=== PATIENT | male | born 1970 | race Caucasian/White ===

== ENCOUNTER 2019-06-17 08:17 | Emergency (ER) | payer OTHER ==
[~2019-06-17] VITALS: Ht 170.2 cm; Wt 76.3 kg
[2019-06-17 08:21] VITALS: BP 150/83
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
[2019-06-17] MEDS ORDERED: KETOROLAC 30 MG/1 ML ONE (08:55)
--- NOTE | 2019-06-17 08:59 | NUR ---
PT MEDICATED PER EMAR. PT TOLERATED WELL.
[2019-06-17] MEDS ORDERED: KETOROLAC 30 MG/1 ML IM ONE (09:00)
== END 2019-06-17 09:18 | disposition home or self-care (01) ==
LOC: ED 09:00
DX: G89.29 Other chronic pain (principal); M25.551 Pain in right hip; F17.200 Nicotine dependence, unspecified, uncomplicated; Z59.0 Homelessness
CPT/HCPCS: 96372; 99283; J1885

== ENCOUNTER 2019-06-24 00:01 | Emergency (ER) | payer SELFPAY ==
[~2019-06-24] VITALS: Ht 170.2 cm; Wt 74.8 kg
[2019-06-24 00:03] VITALS: BP 183/85
--- NOTE | 2019-06-24 00:24 | NUR ---
PT REPORTS "IM HERE FOR A TORADOL SHOT" "I DONT NEED A NURSE OR DOCTOR JUST THE SHOT". PT DENIES ANY MEDICAL C/O REPORTS CHRONIC PAIN FOR MULT YEARS. ERP IN OROM TO FUENTES PT.
[2019-06-24] MEDS ORDERED: KETOROLAC 60 MG/2 ML ONE (00:47)
[2019-06-24] MEDS ORDERED: KETOROLAC 60 MG/2 ML IM ONE (01:00)
== END 2019-06-24 01:05 | disposition home or self-care (01) ==
LOC: ED 00:34
DX: M25.551 Pain in right hip (principal); G89.29 Other chronic pain; R10.2 Pelvic and perineal pain
CPT/HCPCS: 96372; 99283; J1885

== ENCOUNTER 2019-06-25 19:09 | Emergency (ER) | payer SELFPAY ==
[~2019-06-25] VITALS: Ht 171.4 cm; Wt 74.1 kg
[2019-06-25 19:11] VITALS: BP 161/89
[2019-06-25] MEDS ORDERED: KETOROLAC 30 MG/1 ML IM ONE (19:30)
[2019-06-25] MEDS ORDERED: KETOROLAC 60 MG/2 ML ONE (19:32)
--- NOTE | 2019-06-25 19:48 | NUR ---
Patient states he is high on some kind of drugs. He is having hip pain and wants a shot for the pain. Medication administered per jul. Discharge instructions given. Patient ambulatory with a steady gait. Belongings with patient.
== END 2019-06-25 19:50 | disposition home or self-care (01) ==
LOC: ED 19:45
DX: G89.29 Other chronic pain (principal); M25.551 Pain in right hip; F19.10 Other psychoactive substance abuse, uncomplicated; F17.200 Nicotine dependence, unspecified, uncomplicated
CPT/HCPCS: 96372; 99283; J1885

== ENCOUNTER 2019-06-27 15:42 | Emergency (ER) | payer SELFPAY ==
[~2019-06-27] VITALS: Ht 170.2 cm; Wt 75.0 kg
[2019-06-27 15:52] VITALS: BP 131/82
--- NOTE | 2019-06-27 15:52 | NUR ---
BIB [facility]-Pt placed on hold by [facility] team citing 'pt wandering in street, A&O x1'. Per EMS pt used meth earlier today but pt denies this. Pt curently A&O x4, restless in bed but mostly cooperative with assessment by staff. Pt placed in gown, all pt belongings placed in one bag, labeled and secured in locker. Pt's room secured, sitter within eyesight of pt.
[2019-06-27] MEDS ORDERED: LORazepam 2 MG/ML, 1ML ONE (15:58)
[2019-06-27 16:13] LABS: BASOPHILS # (AUTO) 0.04 x10^3/uL (0-0.1); BASOPHILS % (AUTO) 1 % (0-1); EOSINOPHILS # (AUTO) 0.08 x10^3/uL (0-0.4); EOSINOPHILS % (AUTO) 1 % (1-7); LYMPHOCYTES # (AUTO) 2.01 x10^3/uL (1-3.4); LYMPHOCYTES % (AUTO) 27 % (22-44); MD NO; MEAN CORPUSCULAR HEMOGLOBIN 29.5 pg (27.5-34.5); MEAN CORPUSCULAR VOLUME 89.3 fL (81-97); MEAN PLATELET VOLUME 6.9 fL (7.4-10.4); MONOCYTES # (AUTO) 0.79 x10^3/uL (0.2-0.8); MONOCYTES % (AUTO) 11 % (2-9); NEUTROPHILS # (AUTO) 4.39 x10^3/uL (1.8-6.8); NEUTROPHILS % (AUTO) 60 % (42-75); PLATELET COUNT 315 x10^3/uL (130-400); RED BLOOD COUNT 3.93 x10^6/uL (4.38-5.82); RED CELL DISTRIBUTION WIDTH 15.1 % (9.4-14.8)
[2019-06-27 16:20] LABS: ALBUMIN 3.1 g/dL (3.4-5.0); ANION GAP 5 mmol/L (5-15); CALCIUM 8.6 mg/dL (8.5-10.1); CHLORIDE 110 mmol/L (98-107); SALICYLATE LEVEL 2.6 mg/dL (2.8-20.0)
--- NOTE | 2019-06-27 16:21 | NUR ---
Pt medicated with Ativan per JUL. Pt states "Fuck you bitch" when this RN administered injection. This RN advised pt that foul language and disrespect to hospital staff will not be tolerated. Pt verbalized understanding of this. Room remains secured, sitter within eyesight of pt, all safety measures observed.
[2019-06-27 16:23] LABS: ALANINE AMINOTRANSFERASE 70 U/L (12-78); ALKALINE PHOSPHATASE 120 U/L (45-117); BILIRUBIN,TOTAL 0.2 mg/dL (0.2-1.0)
[2019-06-27] MEDS ORDERED: LORazepam 2 MG/ML, 1ML IM ONE (17:00)
--- NOTE | 2019-06-27 17:20 | NUR ---
Pt ambulatory to bathroom and back to bed without difficulty. Urine sample sent to lab. Pt resting in bed watching TV, NADN.
[2019-06-27 17:28] LABS: AMPHETAMINE SCREEN, URINE Positive (Negative); BARBITURATE SCREEN, URINE Negative (Negative); BENZODIAZEPINE SCREEN, URINE Negative (Negative); CANNABINOID SCREEN, URINE Positive (Negative); COCAINE SCREEN, URINE Negative (Negative); METHADONE SCREEN, URINE Negative (Negative); OPIATE SCREEN, URINE Negative (Negative)
--- NOTE | 2019-06-27 17:58 | NUR ---
Dinner tray ordered for pt. Pt resting in bed watching TV,
--- NOTE | 2019-06-27 18:26 | NUR ---
Pt provided with dinner tray with SI precautions observed.
--- NOTE | 2019-06-27 19:09 | NUR ---
Pt eating dinner tray and watching TV, EDILBERTO. Report to Sandy HUFFMAN.
--- NOTE | 2019-06-27 20:23 | NUR ---
pt ate 100% of meal, resting on gurney, eyes closed, respirations even and unlabored. sitter at doorway for frequent checks.
--- NOTE | 2019-06-27 21:34 | NUR ---
dr elliott in to reassess pt. pt sticking his tongue out at dr and not answering questions. pt then rolled on his side, spead his buttocks and flatulated audibly. dr elliott informed pt he will be discharged. after he left the room, pt was gesturing with his middle fingers to the sitters at the doorway. pt was given back his belongings and refused to get dressed and refusing to leave. security called and 3 officers to pt room. pt continues to lay naked on his side, spread his buttock and audibly flatulate while laughing. pt refusing to get dressed and leave. pt then became increasingly aggitated, standing close to officers and posturing with his chest out. pt continues to refuse to leave. pt lunged at security and pt was restrained in handcuffs for staff saftey. [employer] called and pt under arrest for trespassing.
== END 2019-06-27 21:55 | disposition home or self-care (01) ==
LOC: EDBD → MERGE 16:25 → ED 16:25
DX: F15.129 Other stimulant abuse with intoxication, unspecified (principal); R45.1 Restlessness and agitation
CPT/HCPCS: 36415; 80053; 80307; 85025; 93005; 96372; 99284; J2060

== ENCOUNTER 2019-08-03 16:10 | Emergency (ER) | payer OTHER ==
[~2019-08-03] VITALS: Ht 170.2 cm; Wt 75.5 kg
--- NOTE | 2019-08-03 16:26 | NUR ---
NO ANSWER X1 LOBBY
[2019-08-03 16:35] VITALS: BP 125/90
--- NOTE | 2019-08-03 16:49 | NUR ---
NO ANSWER X1 LOBBY
--- NOTE | 2019-08-03 17:49 | NUR ---
Called and no response
== END 2019-08-03 18:18 | disposition left against medical advice (07) ==
LOC: ED 18:10
DX: G89.29 Other chronic pain (principal); M25.551 Pain in right hip
CPT/HCPCS: 99283

== ENCOUNTER 2019-08-08 18:30 | Emergency (ER) | payer SELFPAY ==
[~2019-08-08] VITALS: Ht 170.2 cm; Wt 75.0 kg
[2019-08-08 18:49] VITALS: BP 137/72
[2019-08-08] MEDS ORDERED: KETOROLAC 30 MG/1 ML ONE (19:12)
[2019-08-08] MEDS ORDERED: KETOROLAC 30 MG/1 ML IM ONE (19:30)
== END 2019-08-08 19:42 | disposition home or self-care (01) ==
LOC: ED 19:00
DX: M25.551 Pain in right hip (principal); G89.29 Other chronic pain
CPT/HCPCS: 96372; 99283; J1885

== ENCOUNTER 2019-08-10 21:56 | Emergency (ER) | payer SELFPAY ==
[~2019-08-10] VITALS: Ht 170.2 cm; Wt 77.0 kg
[2019-08-10 21:59] VITALS: BP 135/85
[2019-08-10] MEDS ORDERED: IBUPROFEN 200 MG TABLET ONE (23:40)
--- NOTE | 2019-08-10 23:45 | NUR ---
TASK RN: DC EDUCATION PROVIDED, PT DEMONSTRATES UNDERSTANDING. PT PROVIDED [employer]AXI VOUCHER TO [facility] FOR SAFE TRANSPORT. PT DRESSED APPROPRIATELY FOR WEATHER
[2019-08-11] MEDS ORDERED: IBUPROFEN 200 MG TABLET PO ONE
== END 2019-08-10 23:48 | disposition home or self-care (01) ==
LOC: ED 23:40
DX: G89.11 Acute pain due to trauma (principal); M25.551 Pain in right hip; W00.0XXA Fall on same level due to ice and snow, initial encounter; Y93.89 Activity, other specified; Y92.488 Other paved roadways as the place of occurrence of the external cause; Y99.8 Other external cause status
CPT/HCPCS: 99283

== ENCOUNTER 2019-08-12 13:34 | Emergency (ER) | payer OTHER ==
[~2019-08-12] VITALS: Ht 170.2 cm; Wt 58.5 kg
--- NOTE | 2019-08-12 13:42 | NUR ---
CALLED FOR PT. PT NOT IN LOBBY.
[2019-08-12 13:46] VITALS: BP 141/81
--- NOTE | 2019-08-12 15:00 | NUR ---
COMMERCIAL COORDINATOR: PT SIGNED AMA FORM.
--- NOTE | 2019-08-12 15:00 | NUR ---
NA X 2:
[2019-08-12 15:19] LABS: BASOPHILS # (AUTO) 0.04 x10^3/uL (0-0.1); BASOPHILS % (AUTO) 1 % (0-1); EOSINOPHILS # (AUTO) 0.17 x10^3/uL (0-0.4); EOSINOPHILS % (AUTO) 2 % (1-7); LYMPHOCYTES # (AUTO) 2.36 x10^3/uL (1-3.4); LYMPHOCYTES % (AUTO) 29 % (22-44); MD NO; MEAN CORPUSCULAR HEMOGLOBIN 29.6 pg (27.5-34.5); MEAN CORPUSCULAR HGB CONC 33.1 g/dL (33.2-36.2); MEAN CORPUSCULAR VOLUME 89.5 fL (81-97); MEAN PLATELET VOLUME 7.2 fL (7.4-10.4); MONOCYTES # (AUTO) 0.78 x10^3/uL (0.2-0.8); MONOCYTES % (AUTO) 10 % (2-9); NEUTROPHILS # (AUTO) 4.72 x10^3/uL (1.8-6.8); NEUTROPHILS % (AUTO) 59 % (42-75); PLATELET COUNT 339 x10^3/uL (130-400); RED BLOOD COUNT 4.43 x10^6/uL (4.38-5.82); RED CELL DISTRIBUTION WIDTH 16.5 % (9.4-14.8)
[2019-08-12 15:28] LABS: ALBUMIN 3.3 g/dL (3.4-5.0); ANION GAP 2 mmol/L (5-15); CALCIUM 8.7 mg/dL (8.5-10.1); CHLORIDE 109 mmol/L (98-107); CREATININE 0.71 mg/dL (0.7-1.3); SALICYLATE LEVEL 3.8 mg/dL (2.8-20.0)
--- NOTE | 2019-08-12 16:07 | NUR ---
pt wants refill rx
[2019-08-12] MEDS ORDERED: ACETAMINOPHEN 325 MG TABLET PO ONE (16:30)
[2019-08-12] MEDS ORDERED: KETOROLAC 30 MG/1 ML IM ONE (16:30)
[2019-08-12] MEDS ORDERED: KETOROLAC 30 MG/1 ML ONE (16:51)
[2019-08-12] MEDS ORDERED: ACETAMINOPHEN 325 MG TABLET ONE (16:51)
== END 2019-08-12 16:58 | disposition home or self-care (01) ==
LOC: ED 15:50
DX: S76.011A Strain of muscle, fascia and tendon of right hip, initial encounter (principal); G89.29 Other chronic pain; F17.200 Nicotine dependence, unspecified, uncomplicated; X58.XXXA Exposure to other specified factors, initial encounter; Y93.89 Activity, other specified; Y92.89 Other specified places as the place of occurrence of the external cause; Y99.8 Other external cause status
CPT/HCPCS: 36415; 80048; 80307; 82040; 85025; 96372; 99283; J1885

== ENCOUNTER 2019-08-14 07:28 | Emergency (ER) | payer SELFPAY ==
[~2019-08-14] VITALS: Ht 170.2 cm; Wt 75.0 kg
[2019-08-14 07:47] VITALS: BP 134/85
--- NOTE | 2019-08-14 07:56 | NUR ---
seen by erp in the triage pt admits to erp that he just wants a place to sleep pt was advised that was not a tx we provide pt left from triage
== END 2019-08-14 07:59 | disposition left against medical advice (07) ==
LOC: ED 07:53
DX: G89.29 Other chronic pain (principal); M25.551 Pain in right hip; K02.9 Dental caries, unspecified; K05.10 Chronic gingivitis, plaque induced
CPT/HCPCS: 99281

== ENCOUNTER 2019-08-16 15:09 | Emergency (ER) | payer OTHER ==
[~2019-08-16] VITALS: Ht 172.7 cm; Wt 75.0 kg
[2019-08-16 15:24] VITALS: BP 132/80
--- NOTE | 2019-08-16 15:35 | NUR ---
NO ANSWER FROM [facility]P LOBBY. PT NOT FOUND IN AREA OUTSIDE TENT
--- NOTE | 2019-08-16 15:42 | NUR ---
PT NOT IN LOBBY WHEN CALLED
--- NOTE | 2019-08-16 16:15 | NUR ---
PT TO AT THIS TIME. PT STATES HE IS HERE BECAUSE HE HAS CHRONIC HIP PAIN AND HE IS "TOO LAZY TO GET A PRIMARY CARE PHYSICIAN". PT STATES HE ALSO HAS BED BUGS. PT EXAMINED, MULTIPLE BITE FERNANDEZ FOUND, NO VISIBLE BUGS NOTED. PT TAKEN TO DECON. PT ABLE TO WALK STEADILY. PT DOES NOT APPEAR TO BE IN DISCOMFORT. ERMD UPDATED.
[2019-08-16] MEDS ORDERED: IBUPROFEN 600 MG TABLET ONE (16:56)
[2019-08-16] MEDS ORDERED: IBUPROFEN 600 MG TABLET PO ONE (17:00)
== END 2019-08-16 17:27 | disposition home or self-care (01) ==
LOC: ED 15:52
DX: G89.29 Other chronic pain (principal); M25.551 Pain in right hip; F17.290 Nicotine dependence, other tobacco product, uncomplicated
CPT/HCPCS: 99282

== ENCOUNTER 2019-08-17 23:12 | Emergency (ER) | payer SELFPAY ==
[~2019-08-17] VITALS: Ht 170.2 cm; Wt 75.0 kg
[2019-08-17 23:30] VITALS: BP 146/80
[2019-08-17] MEDS ORDERED: KETOROLAC 30 MG/1 ML ONE (23:40)
--- NOTE | 2019-08-17 23:46 | NUR ---
given med via im per erp order pt understood dc instruction pt up ambulated to be out from alcove
[2019-08-18] MEDS ORDERED: KETOROLAC 30 MG/1 ML IM ONE
== END 2019-08-17 23:49 | disposition home or self-care (01) ==
LOC: ED 23:33
DX: G89.29 Other chronic pain (principal); M54.9 Dorsalgia, unspecified
CPT/HCPCS: 96372; 99283; J1885

== ENCOUNTER 2019-08-19 03:17 | Emergency (ER) | payer SELFPAY ==
[~2019-08-19] VITALS: Ht 172.7 cm; Wt 70.0 kg
[2019-08-19 03:24] VITALS: BP 147/82
[2019-08-19] MEDS ORDERED: ACETAMINOPHEN 500 MG TABLET PO ONE (03:30)
--- NOTE | 2019-08-19 03:30 | NUR ---
ELIN COLE TO [facility] TO ASSESS PT. PT TO BE MEDICATED FOR PAIN AND DISCHARGED FROM [facility].
[2019-08-19] MEDS ORDERED: ACETAMINOPHEN 500 MG TABLET ONE (03:38)
== END 2019-08-19 03:46 | disposition home or self-care (01) ==
LOC: ED 03:30
DX: R05 Cough (principal); M79.606 Pain in leg, unspecified; F17.210 Nicotine dependence, cigarettes, uncomplicated
CPT/HCPCS: 99282

== ENCOUNTER 2019-08-19 18:49 | Emergency (ER) | payer SELFPAY ==
[~2019-08-19] VITALS: Ht 153.7 cm; Wt 77.3 kg
[2019-08-19 18:51] VITALS: BP 132/84
--- NOTE | 2019-08-19 19:04 | NUR ---
DR MARQUIS SPOKE WITH PT IN TRIAGE ROOM. PT VERBALIZED NO COMPLAINTS STATED TO TO DR MARQUIS "I JUST CAME FOR A SHOWER"
== END 2019-08-19 19:27 | disposition left against medical advice (07) ==
LOC: ED 19:20
DX: Z00.00 Encounter for general adult medical examination without abnormal findings (principal); F17.200 Nicotine dependence, unspecified, uncomplicated
CPT/HCPCS: 99281

== ENCOUNTER 2019-08-20 04:40 | Emergency (ER) | payer SELFPAY ==
[~2019-08-20] VITALS: Ht 170.2 cm; Wt 77.7 kg
[2019-08-20 04:44] VITALS: BP 139/86
== END 2019-08-20 05:04 | disposition left against medical advice (07) ==
LOC: ED 04:58
DX: K08.89 Other specified disorders of teeth and supporting structures (principal)
CPT/HCPCS: 82962; 99283

== ENCOUNTER 2019-08-20 10:18 | Emergency (ER) | payer OTHER ==
[~2019-08-20] VITALS: Ht 170.2 cm; Wt 77.0 kg
--- NOTE | 2019-08-20 10:46 | NUR ---
PT PRESENTS TO RESP ED TENT WITH C/O "I HAVE BED BUGS" NO BED BUGS SEEN BY THIS RN. PT GIVEN INSTRUCTION THAT HE SHOULD [facility] TO [facility] A [facility]OWER AND THEN ASK THEM FOR SET OF CLEAN CLOTHES TO PUT ON. PT REPEATED TO ME THE INSTRUCTIONS I HAD GIVEN HIM. PT LEFT D/C UPRIGHT STEADY GAIT. NAD NOTED.
== END 2019-08-20 11:03 | disposition home or self-care (01) ==
LOC: ED 10:52
DX: R05 Cough (principal); Z53.21 Procedure and treatment not carried out due to patient leaving prior to being seen by health care provider

== ENCOUNTER 2019-08-23 09:20 | Emergency (ER) | payer SELFPAY | END 2019-08-23 09:37 | disposition left against medical advice (07) | LOC: MERGE 09:31 → ED 09:31 | DX: I10 Essential (primary) hypertension (principal); R06.02 Shortness of breath; Z53.21 Procedure and treatment not carried out due to patient leaving prior to being seen by health care provider ==

== ENCOUNTER 2019-08-23 09:36 | Emergency (ER) | payer OTHER, SELFPAY ==
[~2019-08-23] VITALS: Ht 170.2 cm; Wt 73.0 kg
--- NOTE | 2019-08-23 09:56 | NUR ---
PATIENT ARRIVES FOR A TORADOL SHOT FOR PAIN IN HIS RIGHT HIP THAT IS CHRONIC. PATIENT STATES ALSO HE HAS HAD A COUGH FOR ONE DAY AND FEVERS AND SOB. PATIENT LIVES IN [place].
[2019-08-23 11:37] VITALS: BP 127/78
== END 2019-08-23 11:54 | disposition home or self-care (01) ==
LOC: ED 09:56
DX: B34.9 Viral infection, unspecified (principal); Z20.828 Contact with and (suspected) exposure to other viral communicable diseases
CPT/HCPCS: 71045; 99283; 99284

== ENCOUNTER 2019-09-05 08:42 | Emergency (ER) | payer OTHER ==
[~2019-09-05] VITALS: Ht 167.6 cm; Wt 78.1 kg
[2019-09-05 08:47] VITALS: BP 107/66
--- NOTE | 2019-09-05 09:32 | NUR ---
PT INSTRUCTED TO GIVE UA SAMPLE MULTIPLE TIMES. PT IS UNABLE TO FOLLOW SIMPLE DIRECTIONS. PT SPEAKING INCOHERENTLY. WILL TRY TO OBTAIN UA AGIAIN.
[2019-09-05 09:45] LABS: BASOPHILS # (AUTO) 0.02 x10^3/uL (0-0.1); BASOPHILS % (AUTO) 0 % (0-1); EOSINOPHILS % (AUTO) 1 % (1-7); LYMPHOCYTES # (AUTO) 1.45 x10^3/uL (1-3.4); LYMPHOCYTES % (AUTO) 19 % (22-44); MD NO; MEAN CORPUSCULAR HEMOGLOBIN 30.1 pg (27.5-34.5); MEAN CORPUSCULAR HGB CONC 33.3 g/dL (33.2-36.2); MEAN CORPUSCULAR VOLUME 90.4 fL (81-97); MEAN PLATELET VOLUME 6.7 fL (7.4-10.4); MONOCYTES # (AUTO) 0.94 x10^3/uL (0.2-0.8); MONOCYTES % (AUTO) 13 % (2-9); NEUTROPHILS # (AUTO) 5.01 x10^3/uL (1.8-6.8); NEUTROPHILS % (AUTO) 67 % (42-75); PLATELET COUNT 315 x10^3/uL (130-400); RED BLOOD COUNT 4.09 x10^6/uL (4.38-5.82); RED CELL DISTRIBUTION WIDTH 15.8 % (9.4-14.8)
[2019-09-05 09:46] LABS: ALBUMIN 2.7 g/dL (3.4-5.0); ANION GAP 6 mmol/L (5-15); CALCIUM 8.6 mg/dL (8.5-10.1); CHLORIDE 109 mmol/L (98-107); SALICYLATE LEVEL 4.3 mg/dL (2.8-20.0)
[2019-09-05 09:49] LABS: ALANINE AMINOTRANSFERASE 86 U/L (12-78); ALKALINE PHOSPHATASE 143 U/L (45-117); BILIRUBIN,TOTAL 0.2 mg/dL (0.2-1.0); CREATININE 0.65 mg/dL (0.7-1.3); TOTAL PROTEIN 6.6 g/dL (6.4-8.2)
--- NOTE | 2019-09-05 10:00 | NUR ---
PT BEING AGGRESSIVE TOWARDS STAFF, HITTING DOS SANTOS AND USING PROFANITY. ATTEMPTED MANY TIMES TO REASON WITH PT WITH NO SUCCESS. MEDS ORDERED PER PROVIDER.
--- NOTE | 2019-09-05 10:14 | NUR ---
PT AGITATED AND THREATENING TO LEAVE. HE HAS REFUSED A COVID TEST. RN IS REDIRECTING AND HOPEFULLY CONVINCING TO STAY FOR PLAN OF CARE.
--- NOTE | 2019-09-05 10:16 | NUR ---
Provider, jaclyn Kumar and deepa RNs to bedside to assist, pt wanting to leave. refusing exams.
--- NOTE | 2019-09-05 10:17 | NUR ---
PT ELOPED THROUGH ENTRANCE WITH A STEADY GAIT
--- NOTE | 2019-09-05 10:17 | NUR ---
PT UP, WALKING AROUND ROOM. UPSET WITH WAIT. PT EDUCATED ON REASON FOR WAIT AND TESTING SUGGESTED BY PROVIDER. PT REFUSES. DENIES NEED FOR FURTHER EVALUATION. WALKS OUT OF ROOM AND LEAVES ER.
--- NOTE | 2019-09-05 10:19 | NUR ---
ATTEMPTING TO OBTAIN NASAL SWAB WITH 3 OTHER STAFF PRESENT. PT STATES HE JUST WANTS TO LEAVE. LEG WOUNDS ON RLE COVERED WITH BANDAID'S AND PT ESCORTED TO EXIT PER HIS REQUEST. PROVIDER PRESENT.
[2019-09-05] MEDS ORDERED: LORazepam 1MG TABLET PO ONE (10:30)
== END 2019-09-05 10:22 | disposition left against medical advice (07) ==
LOC: ED 09:11 → MERGE 09:11 → ED 10:22
DX: J06.9 Acute upper respiratory infection, unspecified (principal); F29 Unspecified psychosis not due to a substance or known physiological condition; R05 Cough; F17.210 Nicotine dependence, cigarettes, uncomplicated; R74.0 Nonspecific elevation of levels of transaminase and lactic acid dehydrogenase [LDH]
CPT/HCPCS: 36415; 71045; 80053; 80307; 85025; 99284

== ENCOUNTER 2019-09-20 10:38 | Emergency (ER) | payer OTHER ==
[~2019-09-20] VITALS: Ht 170.2 cm; Wt 55.4 kg
[2019-09-20 10:47] VITALS: BP 136/82
[2019-09-20] MEDS ORDERED: KETOROLAC 30 MG/1 ML ONE (11:18)
[2019-09-20] MEDS ORDERED: KETOROLAC 30 MG/1 ML IM ONE (11:30)
== END 2019-09-20 11:24 | disposition left against medical advice (07) ==
LOC: ED 10:58
DX: G89.29 Other chronic pain (principal); M25.551 Pain in right hip; F17.290 Nicotine dependence, other tobacco product, uncomplicated
CPT/HCPCS: 99282

== ENCOUNTER 2019-09-22 16:49 | Emergency (ER) | payer OTHER ==
[~2019-09-22] VITALS: Ht 170.2 cm; Wt 73.5 kg
[2019-09-22 17:03] VITALS: BP 126/72
--- NOTE | 2019-09-22 19:05 | NUR ---
not in lobby
--- NOTE | 2019-09-22 19:45 | NUR ---
not in lobby
--- NOTE | 2019-09-22 20:33 | NUR ---
not in lobby
== END 2019-09-22 20:34 | disposition left against medical advice (07) ==
LOC: ED 20:25
DX: M79.601 Pain in right arm (principal); Z53.21 Procedure and treatment not carried out due to patient leaving prior to being seen by health care provider

== ENCOUNTER 2019-09-23 00:44 | Emergency (ER) | payer SELFPAY ==
[~2019-09-23] VITALS: Ht 167.6 cm; Wt 76.0 kg
[2019-09-23 00:47] VITALS: BP 145/88
== END 2019-09-23 01:31 | disposition home or self-care (01) ==
LOC: ED 01:08
DX: F10.10 Alcohol abuse, uncomplicated (principal); F15.10 Other stimulant abuse, uncomplicated; F17.200 Nicotine dependence, unspecified, uncomplicated; Y90.9 Presence of alcohol in blood, level not specified
CPT/HCPCS: 99281

== ENCOUNTER 2019-09-27 19:14 | Emergency (ER) | payer SELFPAY ==
[~2019-09-27] VITALS: Ht 175.3 cm; Wt 80.0 kg
[2019-09-27 19:23] VITALS: BP 130/77
--- NOTE | 2019-09-27 19:28 | NUR ---
PT BIB [facility] FOR "LLE PAIN AND SWELLING. AND ITS INFECTED AND MY SKIN IS MELTING OFF". PT WAS DEMANDING "THAT WE CLEAN HIS FUCKING LEG". PT RESTING IN [facility]. AWAITING
== END 2019-09-27 19:36 | disposition left against medical advice (07) ==
LOC: ED 19:30
DX: M79.662 Pain in left lower leg (principal); Z53.21 Procedure and treatment not carried out due to patient leaving prior to being seen by health care provider

== ENCOUNTER 2019-10-05 14:47 | Emergency (ER) | payer SELFPAY ==
[~2019-10-05] VITALS: Ht 162.6 cm; Wt 74.0 kg
--- NOTE | 2019-10-05 15:10 | NUR ---
NO ANSWER X1
[2019-10-05 15:30] VITALS: BP 118/78
--- NOTE | 2019-10-05 16:13 | NUR ---
DIRECTOR OF ANALYTICAL DEVELOPMENT: NA X 1
--- NOTE | 2019-10-05 16:33 | NUR ---
OUTBOUND SALES ADVISOR: NA X 2
--- NOTE | 2019-10-05 16:46 | NUR ---
MEASUREMENT AND SENSING TECHNICIAN: NA X 3
== END 2019-10-05 16:48 | disposition left against medical advice (07) ==
LOC: ED 15:00
DX: Z53.21 Procedure and treatment not carried out due to patient leaving prior to being seen by health care provider (principal)

== ENCOUNTER 2019-10-08 01:31 | Emergency (ER) | payer SELFPAY ==
[~2019-10-08] VITALS: Ht 165.1 cm; Wt 76.1 kg
[2019-10-08 01:34] VITALS: BP 140/80
--- NOTE | 2019-10-08 02:18 | NUR ---
DURING MD EXAM PT BECAME AGGRESSIVE WITH MD DUE TO MD STATING HE WILL NOT BE GIVING PT A NARCOTIC SHOT FOR PATIENTS CONCERN OVER SARS KILLING PEOPLE. PT WAS ESCORTED OUT BY SECURITY
== END 2019-10-08 02:20 | disposition home or self-care (01) ==
LOC: ED 02:15
DX: F15.10 Other stimulant abuse, uncomplicated (principal); K08.89 Other specified disorders of teeth and supporting structures; H92.09 Otalgia, unspecified ear; F17.200 Nicotine dependence, unspecified, uncomplicated; Z59.0 Homelessness
CPT/HCPCS: 99281